=== PATIENT | female | born 1995 | race Caucasian/White ===

== ENCOUNTER 2019-01-16 12:45 | Emergency (ER) | payer BC ==
[~2019-01-16] VITALS: Ht 177.8 cm; Wt 100.2 kg
[2019-01-16 13:14] VITALS: Ht 177.8 cm; Wt 100.2 kg
[2019-01-16 16:48] VITALS: BP 135/84
[2019-01-19 04:06] LABS: RAPID PLASMA REAGIN Non Reactive (Non Reactive)
== END 2019-01-16 16:48 | disposition home or self-care (01) ==
LOC: ED 12:45
PROVIDERS: Emergency Medicine
DX: T74.21XA Adult sexual abuse, confirmed, initial encounter (principal); Z13.89 Encounter for screening for other disorder; Z88.0 Allergy status to penicillin
CPT/HCPCS: 87491; 87591